=== PATIENT | female | born 1985 | race Hispanic/Latino ===

== ENCOUNTER 2018-08-26 08:15 | Observation (INO) | payer SELFPAY ==
[~2018-08-26] VITALS: Ht 154.9 cm; Wt 69.9 kg
[2018-08-26 08:48] LABS: BASOPHILS % (AUTO) 0.2 % (0.0-5.0); EOSINOPHILS % (AUTO) 0.5 % (0.0-8.0); HEMATOCRIT 26.2 % (36-48); LYMPHOCYTES % (AUTO) 36.8 % (21.0-51.0); MEAN CORPUSCULAR HEMOGLOBIN 28.8 pg (27.0-33.0); MEAN CORPUSCULAR VOLUME 84.7 fL (79-99); MONOCYTES % (AUTO) 4.1 % (3.0-13.0); NEUTROPHILS % (AUTO) 58.4 % (40.0-77.0); PLATELET COUNT (AUTO) 307 K/uL (130-400); RED BLOOD CELL COUNT(AUTO) 3.09 MIL/uL (4.00-5.50); RED CELL DISTRIBUTION WIDTH 12.7 % (11.0-15.5); WHITE BLOOD COUNT (AUTO) 9.7 K/uL (4.8-10.8)
[2018-08-26 08:55] LABS: CREATININE 0.6 mg/dL (0.5-1.5); POTASSIUM 3.8 mmol/L (3.5-5.1)
[2018-08-26 09:00] LABS: ALBUMIN 3.2 g/dL (3.5-5.0); BILIRUBIN,TOTAL 0.2 mg/dL (0.2-1.0); TOTAL PROTEIN, SERUM 6.2 g/dL (6.0-8.3)
[2018-08-26 09:20] LABS: INR 0.89 (0.85-1.15); PARTIAL THROMBOPLASTIN TIME 20.5 SEC (26.3-35.5); PROTHROMBIN TIME 9.4 SEC (9.6-11.6)
[2018-08-26 10:02] LABS: APPEARANCE,URINE Clear (CLEAR); BILIRUBIN,URINE Negative (NEGATIVE); COLOR,URINE Yellow (YELLOW); GLUCOSE, URINE (UA) Negative (NEGATIVE); KETONES,URINE Negative (NEGATIVE); LEUKOCYTE ESTERASE ,URINE Negative (NEGATIVE); NITRATE,URINE Negative (NEGATIVE); OCCULT BLOOD,URINE Moderate (NEGATIVE); PH,URINE 8.5 (5.0-8.0); PROTEIN,URINE Trace mg/dL (NEGATIVE)
[2018-08-26 10:05] LABS: HCG,QUAL RESULT NEGATIVE (NEGATIVE)
[2018-08-26 10:10] LABS: AMPHET/METH SCREEN,URINE NEGATIVE (NEGATIVE); BARBITURATE SCREEN, URINE NEGATIVE (NEGATIVE); BENZODIAZEPINES SCREEN,URINE NEGATIVE (NEGATIVE); CANNABINOID SCREEN,URINE NEGATIVE (NEGATIVE); COCAINE SCREEN,URINE NEGATIVE (NEGATIVE); OPIATE SCREEN,URINE NEGATIVE (NEGATIVE); PHENCYCLIDINE SCREEN,URINE NEGATIVE (NEGATIVE)
[2018-08-26 10:14] LABS: AMORPHOUS SEDIMENT,UR Few /LPF (None Seen); BACTERIA,URINE Few /HPF (None Seen); MUCUS,URINE Few LPF (None Seen); SQUAMOUS EPITHELIAL CELL,UR Few /HPF (0-2); WBC,URINE 0-1 /HPF (0-1)
[2018-08-26 11:15] VITALS: BP 111/51
[2018-08-26] MEDS ORDERED: ESTROGENS,CONJUGATED 25 MG/VIAL IVP SCH (11:30)
[2018-08-26] MEDS ORDERED: ACETAMINOPHEN EXTRA STRENGTH 500 MG TABLET PO SCH ×2 (11:30→12:00)
[2018-08-26] MEDS ORDERED: DIPHENHYDRAMINE HCL 25 MG CAPSULE PO SCH ×2 (11:30→12:00)
[2018-08-26 12:00] VITALS: BP 100/50
[2018-08-26] MEDS ORDERED: 1/2 NORMAL SALINE 1,000 ML IV SCH (12:00)
[2018-08-26] MEDS ORDERED: SODIUM CHLORIDE 0.9% 1000ML 1,000 ML IV SCH (12:00)
[2018-08-26] MEDS ORDERED: WATER FOR INJECTION,STERILE 5 ML VIAL ONE ×2 (12:43→19:00)
[2018-08-26] MEDS: ESTROGENS,CONJUGATED 25 MG/VIAL IV SCH ×3 (12:46→23:46)
[2018-08-26 16:00] VITALS: BP 99/54
--- NOTE | 2018-08-26 18:30 | NUR ---
PATIENT HAD PAD COUNT OF TWO PADS WITH MODERATE BLEEDING. ON VOIDING PATIENT IS PASSING SMALL STRINGY CLOTS. HAS VOIDED 1000 PLUS SINCE MOTHER REMOVED MEASURING CONTAINER BEFORE PATIENT VOIDED.
--- NOTE | 2018-08-26 18:45 | NUR ---
PATIENT HAS 2ND UNIT OF BLOOD TRANSFUSING AT THIS TIME.
--- NOTE | 2018-08-26 19:50 | NUR ---
COMMUNICATION: Dr. Mejia called informed that patient had moderate bleeding with 2 pad count thick vaginal discharges on her second bag of blood transfusion. Received orders to check pelvic ultrasound result, give Tranexamic IV 1 gm once. Check H & H after an hour. Prescription sent to [facility] in [place] for the patient to take the pills as ordered. Patient can go home.
--- NOTE | 2018-08-26 19:58 | NUR ---
Patient assisted to the bathroom voided. Urine was spelled out from the [facility]. Noted with 2 thick blood clots as big and long as a small finger of an adult. Blood transfusion continued. Patient denies dizziness.
[2018-08-26 20:08] VITALS: BP 104/59
[2018-08-26] MEDS ORDERED: PHARMACY COMMUNICATION MISC ONE (20:30)
--- NOTE | 2018-08-26 20:31 | NUR ---
COMMUNICATION: DR. CANO CALLED VIA PHONE INFORMED OF THE PELVIC ULTRASOUND RESULT WITH ORDER TO DISCHARGES PATIENT HOME. CHECK HEMOGLOBIN AND HEMATOCRIT RESULT IF ABOVE 7 HEMOGLOBIN SHE CAN GO HOME. TRANEXAMIC ACID RATE VERIFIED SHE CLAIMED, "TO RUN AT 100 ML/HOUR."
[2018-08-26] MEDS ORDERED: TRANEXAMIC ACID 1,000 MG in SODIUM CHLORIDE 0.9% 250 ML IV SCH (20:45)
[2018-08-26 21:54] LABS: HEMATOCRIT 31.4 % (36-48)
--- NOTE | 2018-08-26 22:40 | NUR ---
DISCHARGES INSTRUCTION: INSTRUCTION GIVEN TO PATIENT AND BOTH VERBALIZES UNDERSTANDING.
[2018-08-26 23:25] VITALS: BP 103/64
--- NOTE | 2018-08-27 00:10 | NUR ---
Patient: Patient discharges home accompanied by and relative in their private car wheeled out via wheelchair by Tech. Kylah Out of the facility on stable condition.
== END 2018-08-27 00:10 | disposition home or self-care (01) ==
LOC: EDH 08:15 → EDHIP 08:16 → WSH 11:10
PROVIDERS: ADMIT Obstetrics & Gynecology; ATTEND Obstetrics & Gynecology
DX: N93.9 Abnormal uterine and vaginal bleeding, unspecified (principal); R55 Syncope and collapse; D64.9 Anemia, unspecified; Z79.899 Other long term (current) drug therapy
CPT/HCPCS: 36415; 36430; 76856; 80053; 80305; 81001; 81025; 84484; 84702; 85014; 85018; 85025; 85610; 85730; 86850; 86900; 86901; 86922 ×2; 96365; 96366; 96375; 96376; 99291; A4218; A4510; G0378 ×16; J1410; J3490; J7030; P9016 ×2; Q0163